=== PATIENT | female | born 1995 | race Two or more races ===

== ENCOUNTER 2016-11-16 17:25 | Emergency (ER) | payer SELFPAY ==
[2016-11-16] MEDS ORDERED: OXYCODONE-ACETAMINOPHEN 5-325 MG TABLET PO ONE (18:45)
[2016-11-16] MEDS ORDERED: ONDANSETRON 4 MG TAB.RAPDIS PO ONE (18:45)
--- NOTE | 2016-11-16 18:50 | ER Document Report ---
ED General - General Chief Complaint: Abdominal Pain Stated Complaint: CHILLS,ABDOMINAL PAIN,NAUSEA Time Seen by Provider: 11/16/16 18:44 Mode of Arrival: Ambulatory Information source: Patient TRAVEL OUTSIDE OF THE [place] IN LAST 30 DAYS: No - HPI Patient complains to provider of: lower abd pain Onset: This afternoon Onset/Duration: Sudden Quality of pain: Sharp Severity: Moderate Pain Level: 3 Context: Patient complains of sudden onset of bilateral lower abdominal pain this afternoon about 4:00. States she has had similar symptoms in the past. Seen 7 months ago at [facility] in [place]. Patient states she had ultrasound and pelvic exam which were negative. States she does not know the diagnosis, but was discharged. Patient denies fever, but reports she does have nausea. Denies diarrhea. Denies vaginal discharge. Associated symptoms: Chills, Nausea. denies: Vomiting Exacerbated by: Denies Relieved by: Denies Similar symptoms previously: Yes Recently seen / treated by doctor: No - Related Data Allergies/Adverse Reactions: No Known Allergies Allergy (Unverified 11/16/16 17:32) Past Medical History - General Information source: Patient - Social History Smoking Status: Current Every Day Smoker Cigarette use (# per day): Yes Frequency of alcohol use: None Drug Abuse: None Lives with: Family Family History: Reviewed & Not Pertinent Patient has suicidal ideation: No Patient has homicidal ideation: No - Medical History Medical History: Negative Renal/ Medical History: Denies: Hx Peritoneal Dialysis Surgical Hx: Negative - Immunizations Immunizations up to date: Yes Review of Systems - Review of Systems Constitutional: See HPI EENT: No symptoms reported Cardiovascular: No symptoms reported Respiratory: No symptoms reported Gastrointestinal: See HPI Genitourinary: No symptoms reported Female Genitourinary: No symptoms reported Musculoskeletal: No symptoms reported Skin: No symptoms reported Hematologic/Lymphatic: No symptoms reported Neurological/Psychological: No symptoms reported -: Yes All other systems reviewed and negative Physical Exam - Vital signs Vitals: Temp Pulse Resp BP Pulse Ox 98.5 F 111 H 18 106/68 100 11/16/16 17:32 11/16/16 17:32 11/16/16 17:32 11/16/16 17:32 11/16/16 17:32 - General General appearance: Appears well, Alert In distress: Mild - HEENT Head: Normocephalic Eyes: Normal - Respiratory Respiratory status: No respiratory distress Breath sounds: Normal - Cardiovascular Rhythm: Regular Heart sounds: Normal auscultation - Abdominal Inspection: Normal Bowel sounds: Normal Tenderness: Tender - All across lower abdomen, Guarding. No: McBurney's point, Rebound - Back Back: No: CVA tenderness - Extremities General upper extremity: Normal inspection General lower extremity: Normal inspection - Neurological Neuro grossly intact: Yes Cognition: Normal - Psychological Associated symptoms: Normal affect, Normal mood - Skin Skin Temperature: Warm Skin Moisture: Dry Skin Color: Normal Course - Re-evaluation Re-evalutation: 11/16/16 20:52 Labs unremarkable at this time. Patient advised pelvic exam recommended. Patient is refusing pelvic exam at this time. Patient still complaining of lower abdominal pain, denies nausea, vomiting, vaginal discharge or dysuria at this time. Advised to follow-up with her doctor, or to return if symptoms worsen. Patient verbalizes understanding. 11/16/16 20:58 - Vital Signs Vital signs: Temp Pulse Resp BP Pulse Ox 98.0 F 66 14 94/53 L 98 11/16/16 21:19 11/16/16 21:19 11/16/16 21:19 11/16/16 21:19 11/16/16 21:19 - Laboratory Result Diagrams: 11/16/16 18:59 11/16/16 18:59 Laboratory results interpreted by me: 11/16/16 11/16/16 11/16/16 18:59 18:59 19:38 Seg Neutrophils % 78.6 H Lymphocytes % 11.1 L Albumin 3.4 L Urine Urobilinogen 2.0 H Ur Leukocyte Esterase TRACE H Discharge - Discharge Clinical Impression: Lower abdominal pain Condition: Good Disposition: HOME, SELF-CARE Instructions: Abdominal Pain ([facility]) Additional Instructions: Tylenol or ibuprofen for pain. Follow-up with your doctor for recheck or return for worsening symptoms. Prescriptions: Ibuprofen 800 mg PO TID PRN #30 tablet PRN Reason:
[2016-11-16 19:12] LABS: ABSOLUTE LYMPHOCYTES (AUTO) 0.9 10^3/uL (0.5-4.7); ABSOLUTE MONOCYTES (AUTO) 0.8 10^3/uL (0.1-1.4); ABSOLUTE NEUT (AUTO) 6.6 10^3/uL (1.7-8.2); BASOPHILS % (AUTO) 0.3 % (0-2); EOSINOPHILS % (AUTO) 0.5 % (0-6); HEMATOCRIT 39.2 % (36.0-47.0); HEMOGLOBIN 13.2 g/dL (12.0-15.5); HGB HCT DIFFERENCE 0.4; LYMPHOCYTES % (AUTO) 11.1 % (13-45); MEAN CORPUSCULAR HEMOGLOBIN 30.3 pg (27.0-33.4); MEAN CORPUSCULAR HGB CONC 33.7 g/dL (32.0-36.0); MEAN CORPUSCULAR VOLUME 90 fl (80-97); MONOCYTES % (AUTO) 9.5 % (3-13); RED BLOOD COUNT 4.36 10^6/uL (3.72-5.28); RED CELL DISTRIBUTION WIDTH 12.8 % (11.5-14.0); SEGMENTED NEUTROPHILS % (AUTO) 78.6 % (42-78); WHITE BLOOD COUNT 8.4 10^3/uL (4.0-10.5)
[2016-11-16 19:29] LABS: ALANINE AMINOTRANSFERASE 32 U/L (9-52); ALBUMIN 3.4 g/dL (3.5-5.0); ALKALINE PHOSPHATASE 85 U/L (38-126); ANION GAP 11 (5-19); ASPARTATE AMINO TRANSFERASE 21 U/L (14-36); BILIRUBIN,DIRECT 0.3 mg/dL (0.0-0.4); BILIRUBIN,TOTAL 0.9 mg/dL (0.2-1.3); BLOOD UREA NITROGEN 7 mg/dL (7-20); CARBON DIOXIDE 24 mmol/L (22-30); CHLORIDE 104 mmol/L (98-107); CREATININE RESULT 0.66 mg/dL (0.52-1.25); GLUCOSE 102 mg/dL (75-110); LIPASE 33.5 U/L (23-300); POTASSIUM 4.5 mmol/L (3.6-5.0); TOTAL PROTEIN 7.3 g/dL (6.3-8.2)
[2016-11-16 19:51] LABS: APPEARANCE,URINE CLOUDY; BILIRUBIN,URINE NEGATIVE (NEGATIVE); GLUCOSE, URINE NEGATIVE (NEGATIVE); KETONES,URINE NEGATIVE (NEGATIVE); LEUKOCYTE ESTERASE,URINE TRACE (NEGATIVE); NITRITE,URINE NEGATIVE (NEGATIVE); PROTEIN,URINE NEGATIVE (NEGATIVE); URINE SPECIFIC GRAVITY 1.014
[2016-11-16] MEDS ORDERED: IBUPROFEN 800 MG TABLET PO ONE (20:50)
[2016-11-16 21:43] VITALS: BP 94/53
[2016-11-16 22:53] LABS: CHLAM PCR NOT DETECTED (NOT DETECT)
== END 2016-11-16 21:09 | disposition home or self-care (01) ==
LOC: ER 17:25
DX: R10.30 Lower abdominal pain, unspecified (principal); R11.0 Nausea; R68.83 Chills (without fever); F17.210 Nicotine dependence, cigarettes, uncomplicated
CPT/HCPCS: 99284; 36415; 84702; 83690; 85025; 80053; 81001; 87491; 87591; S0119

== ENCOUNTER 2016-12-14 21:19 | Emergency (ER) | payer SELFPAY | END 2016-12-14 22:31 | disposition left against medical advice (07) | LOC: ER 21:19 | DX: Z53.9 Procedure and treatment not carried out, unspecified reason (principal); M79.89 Other specified soft tissue disorders ==

== ENCOUNTER 2016-12-15 16:54 | Emergency (ER) | payer SELFPAY ==
[2016-12-15] MEDS ORDERED: OXYCODONE-ACETAMINOPHEN 5-325 MG TABLET PO ONE (17:50)
[2016-12-15] MEDS ORDERED: IBUPROFEN 600 MG TABLET PO ONE (17:50)
--- NOTE | 2016-12-15 17:52 | ER Document Report ---
ED Medical Screen (RME) - General Chief Complaint: Abscess Stated Complaint: RIGHT WRIST POSSIBLE ABSCESS Time Seen by Provider: 12/15/16 17:49 Notes: The patient is a 21-year-old female presents with 1 day of swelling over her posterior right forearm. She noticed a small pimple that expanded today. Denies numbness, tingling, fevers or difficulty moving her wrist or hand. PE: 3 cm abscess with surrounding erythema over right posterior forearm, strong pulses, N/V intact distally I have greeted and performed a rapid initial assessment of this patient. A comprehensive ED assessment and evaluation of the patient, analysis of test results and completion of the medical decision making process will be conducted by additional ED providers. TRAVEL OUTSIDE OF THE [place] IN LAST 30 DAYS: No - Related Data Allergies/Adverse Reactions: No Known Allergies Allergy (Verified 12/15/16 17:09) Past Medical History - Social History Chew tobacco use (# tins/day): No Frequency of alcohol use: None Drug Abuse: None Renal/ Medical History: Denies: Hx Peritoneal Dialysis Surgical Hx: Negative - Immunizations Immunizations up to date: Yes Hx Diphtheria, Pertussis, Tetanus Vaccination: No Physical Exam - Vital signs Vitals: Temp Pulse Resp BP Pulse Ox 97.5 F 98 14 108/63 96 12/15/16 17:11 12/15/16 17:11 12/15/16 17:11 12/15/16 17:11 12/15/16 17:11 Course - Vital Signs Vital signs: Temp Pulse Resp BP Pulse Ox 97.5 F 98 14 108/63 96 12/15/16 17:11 12/15/16 17:11 12/15/16 17:11 12/15/16 17:11 12/15/16 17:11
[2016-12-15] MEDS ORDERED: CEFTRIAXONE INJ 1000 MG VIAL IM ONE (18:23)
[2016-12-15] MEDS ORDERED: LIDOCAINE 4%/TETRACAINE 0.5%/EPI 0.18% 5 ML TOPICAL SOLN TOP ONE (18:23)
--- NOTE | 2016-12-15 18:32 | ER Document Report ---
ED General - General Chief Complaint: Abscess Stated Complaint: RIGHT WRIST POSSIBLE ABSCESS Time Seen by Provider: 12/15/16 17:49 Notes: Patient is a 21-year-old female comes the ED complaining of an abscess to her posterior right wrist 2 days. Patient states that it started out as a small pimple and then it began to expand. Pt not aware of any insect bite. She Did apply Neosporin without any relief. The soreness is starting to move proximally on her forearm without any red streaks. Patient states that she has had pustular drainage. She still eating and drinking without any problems. Pt states she is still able to move her wrist, fingers, elbows without any problems besides discomfort. Denies any new tattoos in the area. Denies any IV drug use. Denies any fever, URI, chest pain, shortness of breath, abdominal pain, nausea/vomiting, numbness/tingling. TRAVEL OUTSIDE OF THE [place] IN LAST 30 DAYS: No - Related Data Allergies/Adverse Reactions: No Known Allergies Allergy (Verified 12/15/16 17:09) Past Medical History - Social History Smoking Status: Current Every Day Smoker Chew tobacco use (# tins/day): No Frequency of alcohol use: None Drug Abuse: None Family History: Reviewed & Not Pertinent Patient has suicidal ideation: No Patient has homicidal ideation: No Renal/ Medical History: Denies: Hx Peritoneal Dialysis Surgical Hx: Negative - Immunizations Immunizations up to date: Yes Hx Diphtheria, Pertussis, Tetanus Vaccination: No Review of Systems - Review of Systems Notes: REVIEW OF SYSTEMS: CONSTITUTIONAL : Denies fever, chills, or sweats. Denies recent illness. EENT: Denies eye, ear, throat, or mouth pain or symptoms. Denies nasal or sinus congestion or discharge. Denies throat, tongue, or mouth swelling or difficulty swallowing. CARDIOVASCULAR: Denies chest pain. Denies palpitations or racing or irregular heart beat. Denies ankle edema. RESPIRATORY: Denies cough, cold, or chest congestion. Denies shortness of breath, difficulty breathing, or wheezing. GASTROINTESTINAL: Denies abdominal pain or distention. Denies nausea, vomiting , or diarrhea. Denies blood in vomitus, stools, or per rectum. Denies black, tarry stools. Denies constipation. GENITOURINARY: Denies difficulty urinating, painful urination, burning, frequency, blood in urine, or discharge. MUSCULOSKELETAL: see hpi SKIN: see hpi HEMATOLOGIC : Denies easy bruising or bleeding. LYMPHATIC: Denies swollen, enlarged glands. NEUROLOGICAL: Denies confusion or altered mental status. Denies passing out or loss of consciousness. Denies dizziness or lightheadedness. Denies headache. Denies weakness or paralysis or loss of use of either side. Denies problems with gait or speech. Denies sensory loss, numbness, or tingling. ALL OTHER SYSTEMS REVIEWED AND NEGATIVE. Dictation was performed using [employer] voice recognition software Physical Exam - Vital signs Vitals: Temp Pulse Resp BP Pulse Ox 97.5 F 98 14 108/63 96 12/15/16 17:11 12/15/16 17:11 12/15/16 17:11 12/15/16 17:11 12/15/16 17:11 Notes: PHYSICAL EXAMINATION: GENERAL: Well-appearing, well-nourished and in no acute distress. NECK: Normal range of motion, supple without lymphadenopathy. No axillary or proximal arm lymphadenopathy. LUNGS: Breath sounds clear to auscultation bilaterally and equal. No wheezes rales or rhonchi. HEART: Regular rate and rhythm without murmurs, rubs, gallops. ABDOMEN: Soft, nontender, nondistended abdomen. Musculoskeletal: FROM to passive/active. Strength 5+/5. + tenderness of the rt wrist secondary to abscess superficially. Extremities: No cyanosis, clubbing, or edema b/l. Peripheral pulses 2+. Capillary refill less than 3 seconds. NEUROLOGICAL:Normal speech, normal gait. Normal sensory, motor exams to Rt UE and distal to wrist. PSYCH: Normal mood, normal affect. SKIN: + 3cm abscess noted to posterior rt wrist. No d/c currently. + tenderness. Course - Re-evaluation Re-evalutation: Patient is an afebrile, well-hydrated, 21yo female who presents with an abscess to her rt posterior wrist. XR negative. Oxycodone given for pain control by Dr. Novak. I&D performed successfully without complication. Wound culture pending. Pt states she does not have insurance so she will not fill any medication that is too expensive. We will then try Bactrim DS PO BID x10 days which will give us MRSA coverage as well due to the quick growth of the abscess. wound instructions reviewed. Pt does not have a PCM. She is to return in 2-3 days for a wound check. Return to the ED sooner with development of fever, red streaks, worsening pain, hand numbness/tingling, cp, sob. Pt in agreement. 12/15/16 19:38 - Vital Signs Vital signs: Temp Pulse Resp BP Pulse Ox 97.5 F 98 14 108/63 96 12/15/16 17:11 12/15/16 17:11 12/15/16 17:11 12/15/16 17:11 12/15/16 17:11 Procedures - Incision and Drainage Right Posterior Wrist Time completed: 19:00 Type: Simple Anesthetic type: 1% Lidocaine mL's of anesthetic: 5 Blade size: 11 I&D procedure: Shurclens applied, Iodoform packing placed, Sterile dressing applied Incision Method: Incision made by scalpel Amount/type of drainage: Copious, pustular/bloody Notes: Incision and drainage procedure, risks, benefits reviewed with the patient. Verbal and written consent obtained. Sterile technique utilized. The area was extensively cleansed utilizing shurclens and saline. A 21-gauge needle was utilized to anesthetize the area using 5 mL's of 1% lidocaine without epinephrine along with L.E.T. Once adequate anesthesia was provided, a #11 scalpel was utilized to make a 1 cm incision at the site of the abscess. Copious amounts of pustular material was expressed. Wound culture obtained. Hemostats were then utilized to break up any remaining muscular pockets within the abscess. The wound was then lightly packed (wick) using 1/2" iodoform. Wound dressing and triple antibiotic placed. Minimal blood loss (approximately 2-3 cc's). Patient tolerated procedure well. No complications. 12/15/16 19:35 Discharge - Discharge Clinical Impression: Abscess Cellulitis Qualifiers: Site of cellulitis: extremity Site of cellulitis of extremity: upper extremity Laterality: right Qualified Code(s): L03.113 - Cellulitis of right upper limb Condition: Stable Disposition: HOME, SELF-CARE Instructions: Abscess ([facility]), Trimethoprim-Sulfa ([facility]), Post Incision and Drainage Additional Instructions: Do not shower or bathe for 24 hours. After 24 hours she may shower but no submersion of the wound under water. Keep the original dressing on the wound for 24 hours unless the drainage stops through. Change the dressing daily thereafter and use a small amount of triple antibiotic ointment over the open wound. Return to the ED 2-3 days for recheck and continue direction for wound packing. Return to the ED sooner with development of fever, red streaks, worsening pain, hand numbness/tingling, chest pains, shortness of breath. Take medications as directed. Prescriptions: Sulfamethoxazole/Trimethoprim [Bactrim Ds Tablet] 1 each PO BID #20 tablet Forms: Smoking Cessation Education
[2016-12-15] MEDS ORDERED: LIDOCAINE 1% INJ-PF (10 MG/ML) 30 ML SDV INJ ONE (18:37)
--- NOTE | 2016-12-15 19:18 | RADIOLOGY REPORT (SQ) ---
EXAM DESCRIPTION: WRIST RIGHT 3 VIEWS COMPLETED DATE/TIME: 12/15/2016 6:56 pm REASON FOR STUDY: Abscess Rt wrist, r/o osteomyelitis COMPARISON: None. NUMBER OF VIEWS: Three views. TECHNIQUE: AP, lateral, and oblique radiographic images acquired of the right wrist. LIMITATIONS: None. FINDINGS: MINERALIZATION: Normal. BONES: No acute fracture or dislocation. No worrisome bone lesions. Normal alignment. SOFT TISSUES: Lateral soft tissue swelling at the level of the distal ulnar metaphysis. No radiopaqu e foreign body. OTHER: No other significant finding. IMPRESSION: No osseous abnormality. Lateral soft tissue swelling at the level of the distal ulnar m etaphysis. No radiopaque foreign body. TECHNICAL DOCUMENTATION: JOB ID: [id number] [employer]- All Rights Reserved
[2016-12-15] MEDS ORDERED: OXYCODONE HCL IR 5 MG TABLET PO ONE (19:33)
[2016-12-15 20:15] VITALS: BP 121/76
== END 2016-12-15 20:15 | disposition home or self-care (01) ==
LOC: ER 16:54
PROC: 0H9DXZZ Drainage of Right Lower Arm Skin, External Approach (ICD-10-PCS; principal; 2016-12-15)
DX: L02.413 Cutaneous abscess of right upper limb (principal); L03.113 Cellulitis of right upper limb; F17.200 Nicotine dependence, unspecified, uncomplicated
CPT/HCPCS: 99284; 87070; 87205; 87075; 87077; 73110; 10060; J0696; J3490

== ENCOUNTER 2016-12-18 14:44 | Observation (INO) | payer SELFPAY ==
--- NOTE | 2016-12-18 16:32 | RADIOLOGY REPORT (SQ) ---
EXAM DESCRIPTION: WRIST RIGHT 3 VIEWS COMPLETED DATE/TIME: 12/18/2016 4:06 pm REASON FOR STUDY: increased pain and swelling COMPARISON: 12/15/2016 NUMBER OF VIEWS: Three views. TECHNIQUE: AP, lateral, and oblique radiographic images acquired of the right wrist. LIMITATIONS: None. FINDINGS: MINERALIZATION: Normal. BONES: No acute fracture or dislocation. No worrisome bone lesions. Normal alignment. SOFT TISSUES: Decreased, albeit persistent soft tissue swelling overlies the distal ulnar arm metaphy sis. Superficial soft tissue irregularity is demonstrated. No retained radiopaque foreign body. OTHER: No other significant finding. IMPRESSION: Decreased, albeit persistent, soft tissue swelling overlying the distal ulnar metaphysis . No interval osseous abnormality. TECHNICAL DOCUMENTATION: JOB ID: [id number] [employer]- All Rights Reserved
--- NOTE | 2016-12-18 17:06 | ER Document Report ---
Doctor's Note Notes: Patient was continued in conjunction with the LI. Patient states that wound was drained and that that appears better but now she is having streaking into her wrist and pain with movement of her wrist. Patient infection is concerning for abscess or tendon involvement. Patient's antibiotic regimen and home not working. She will need to be admitted and evaluated by orthopedics for further evaluation. Wound is also concerning for IV drug use which patient denies at this time.
[2016-12-18 17:50] LABS: ABSOLUTE LYMPHOCYTES (AUTO) 1.4 10^3/uL (0.5-4.7); ABSOLUTE MONOCYTES (AUTO) 0.4 10^3/uL (0.1-1.4); ABSOLUTE NEUT (AUTO) 3.1 10^3/uL (1.7-8.2); BASOPHILS % (AUTO) 0.3 % (0-2); EOSINOPHILS % (AUTO) 0.3 % (0-6); HEMATOCRIT 37.8 % (36.0-47.0); HEMOGLOBIN 12.5 g/dL (12.0-15.5); HGB HCT DIFFERENCE -0.3; LYMPHOCYTES % (AUTO) 28.9 % (13-45); MEAN CORPUSCULAR HEMOGLOBIN 29.5 pg (27.0-33.4); MEAN CORPUSCULAR HGB CONC 33.1 g/dL (32.0-36.0); MEAN CORPUSCULAR VOLUME 89 fl (80-97); MONOCYTES % (AUTO) 8.6 % (3-13); RED BLOOD COUNT 4.24 10^6/uL (3.72-5.28); RED CELL DISTRIBUTION WIDTH 13.6 % (11.5-14.0); SEGMENTED NEUTROPHILS % (AUTO) 61.9 % (42-78); WHITE BLOOD COUNT 4.9 10^3/uL (4.0-10.5)
[2016-12-18 18:07] LABS: ALANINE AMINOTRANSFERASE 35 U/L (9-52); ALBUMIN 3.2 g/dL (3.5-5.0); ALKALINE PHOSPHATASE 124 U/L (38-126); ANION GAP 11 (5-19); ASPARTATE AMINO TRANSFERASE 40 U/L (14-36); BILIRUBIN,DIRECT 0.4 mg/dL (0.0-0.4); BILIRUBIN,TOTAL 0.4 mg/dL (0.2-1.3); BLOOD UREA NITROGEN 7 mg/dL (7-20); C-REACTIVE PROTEIN 35.2 mg/L (<10.0); CALCIUM 8.7 mg/dL (8.4-10.2); CARBON DIOXIDE 23 mmol/L (22-30); CHLORIDE 101 mmol/L (98-107); CREATININE RESULT 0.89 mg/dL (0.52-1.25); GLUCOSE 92 mg/dL (75-110); POTASSIUM 4.6 mmol/L (3.6-5.0); SODIUM 135.3 mmol/L (137-145); TOTAL PROTEIN 7.6 g/dL (6.3-8.2)
[2016-12-18] MEDS ORDERED: CIPROFLOXACIN 400 MG/D5W RTU 200 ML IV ONE (18:20)
[2016-12-18] MEDS ORDERED: VANCOMYCIN HCL INJ 1000 MG VIAL IV ONE (18:20)
--- NOTE | 2016-12-18 18:27 | ER Document Report ---
ED Extremity Problem, Upper - General Chief Complaint: Wound Recheck Stated Complaint: WOUND RECHECK Time Seen by Provider: 12/18/16 15:20 Mode of Arrival: Ambulatory Information source: Patient Notes: 1-year-old female presents to ED for recheck of a abscess to her right wrist. She states she was seen on 12/15/2016 and had an I&D of the abscess but that the arm is getting more painful and more swollen since the I&D. She states she is on Bactrim and has been taking her medications as prescribed. TRAVEL OUTSIDE OF THE [place] IN LAST 30 DAYS: No - HPI Patient complains to provider of: Right, Wrist Onset: Other - 12/13/2016 Recent injury: No Quality of pain: Pressure, Sharp, Throbbing Severity of pain: Moderate, Persistent Pain Level: 3 Context: Other - Abscess Associated symptoms: Other - In swelling redness feels warm to the touch Exacerbated by: Movement Relieved by: Rest Similar symptoms previously: Yes Recently seen / treated by doctor: Yes - Related Data Allergies/Adverse Reactions: No Known Allergies Allergy (Verified 12/18/16 14:46) Past Medical History - General Information source: Patient - Social History Smoking Status: Current Every Day Smoker Cigarette use (# per day): Yes - Half a pack a day Chew tobacco use (# tins/day): No Smoking Education Provided: Yes - Less than 2 minutes Frequency of alcohol use: None Drug Abuse: None, Other Family History: Reviewed & Not Pertinent Patient has suicidal ideation: No Patient has homicidal ideation: No - Past Medical History Cardiac Medical History: Reports: None Pulmonary Medical History: Reports: None EENT Medical History: Reports: None Renal/ Medical History: Denies: Hx Peritoneal Dialysis - Immunizations Immunizations up to date: Yes Hx Diphtheria, Pertussis, Tetanus Vaccination: No Review of Systems - Review of Systems Constitutional: No symptoms reported EENT: No symptoms reported Cardiovascular: No symptoms reported Respiratory: No symptoms reported Gastrointestinal: No symptoms reported Genitourinary: No symptoms reported Female Genitourinary: No symptoms reported Musculoskeletal: Other - Swollen and inflamed posterior right wrist. Abscess that was I&D on the seventh is opening and draining purulent drainage there is also a tender fluctuant area right on the wrist distal to where the previous abscess was I&D Skin: Other - Open wound where previous abscess was I&D purulent drainage Hematologic/Lymphatic: No symptoms reported Neurological/Psychological: No symptoms reported Physical Exam - Vital signs Vitals: Temp Pulse Resp BP Pulse Ox 98.2 F 107 H 12 115/61 96 12/18/16 14:47 12/18/16 14:47 12/18/16 14:47 12/18/16 14:47 12/18/16 14:47 Interpretation: Normal - General General appearance: Appears well, Alert - HEENT Head: Normocephalic, Atraumatic Eyes: Normal Pupils: PERRL - Respiratory Respiratory status: No respiratory distress Chest status: Nontender Breath sounds: Normal Chest palpation: Normal - Cardiovascular Rhythm: Regular Heart sounds: Normal auscultation Murmur: No - Abdominal Inspection: Normal Distension: No distension Bowel sounds: Normal Tenderness: Nontender Organomegaly: No organomegaly - Back Back: Normal, Nontender - Extremities General lower extremity: Normal inspection, Nontender, Normal color, Normal ROM , Normal temperature, Normal weight bearing. No: Annemarie's sign Wrist: Tender, Limited ROM, Other - Open draining with purulent drainage I&D site just proximal to the right wrist. Fluctuant tender warm red area at the wrist.. No: Abrasion, Axial load of thumb pain, Deformity, Dislocation, Ecchymosis, Instability, Laceration Hand: No evidence of human bite, No evidence of FB, Swelling - Neurological Neuro grossly intact: Yes Cognition: Normal Orientation: AAOx4 Stefan Coma Scale Eye Opening: Spontaneous Stefan Coma Scale Verbal: Oriented Stefan Coma Scale Motor: Obeys Commands Stefan Coma Scale Total: 15 Speech: Normal Motor strength normal: LUE, RUE, LLE, RLE Sensory: Normal - Psychological Associated symptoms: Normal affect, Normal mood - Skin Skin Temperature: Warm Skin Moisture: Dry Skin Color: Normal Skin irregularity: Abscess Location of irregularity: Extremities - Right wrist and just proximal to the wrist posterior surface Irregularity with: Swelling, Tenderness, Warmth, Weeping - Purulent drainage from abscess site Course - Re-evaluation Re-evalutation: 12/18/16 20:[address] Rooney at 1720 and examined the patient and requested that Dr. Gracia be called for possible admission. Dr. Gracia consulted he requested CBC, chemistry, blood cultures, sed rate, CRP, urine, urine drug screen, and test to be completed and he would come and examine the patient. X- ray was also completed on the wrist. 12/18/16 Dr. Gracia came and examined the patient at 1836 he said that the patient will be admitted to start antibiotics let the patient have a diet tonight. - Vital Signs Vital signs: Temp Pulse Resp BP Pulse Ox 98.4 F 72 18 106/61 99 12/18/16 19:50 12/18/16 19:50 12/18/16 19:50 12/18/16 19:50 12/18/16 19:50 - Laboratory Result Diagrams: 12/18/16 17:30 12/18/16 17:30 Laboratory results interpreted by me: 12/18/16 12/18/16 17:30 17:30 ESR 88 H Sodium 135.3 L AST 40 H C-Reactive Protein 35.2 H Albumin 3.2 L Discharge - Discharge Clinical Impression: Abscess Cellulitis Qualifiers: Site of cellulitis: extremity Site of cellulitis of extremity: upper extremity Laterality: right Qualified Code(s): L03.113 - Cellulitis of right upper limb Disposition: ADMITTED INPATIENT Admitting Provider: yvon Unit Admitted: Surgical Floor
[2016-12-18] MEDS ORDERED: ONDANSETRON HCL INJ/PF 4 MG/2 ML SDV IV PRN (18:31)
--- NOTE | 2016-12-18 18:38 | PDOC H&P ---
History of Present Illness Patient complains of: Wound check right wrist History of Present Illness: RIK WORRELL is a 21 year old female Presents emergency room for wound check of her right wrist. She states it developed redness and swelling a few days ago. She was seen at the emergency room on 12/15/16 and a bedside I&D was performed. She has been taking Septra twice a day. She feels as though the wound has improved since that time. She denies fever chills or sweats. Current pain 07/20. Denies illicit drug use, insect bite, trauma, HIV and hepatitis C. Social History Information Source: Patient Smoking Status: Current Every Day Smoker Hx Recreational Drug Use: No Family History Family History: Reviewed & Not Pertinent Parental Family History Reviewed: No Children Family History Reviewed: No Sibling(s) Family History Reviewed.: No Medication/Allergy Home Medications: Ibuprofen 800 mg PO TID PRN #30 tablet 11/16/16 Sulfamethoxazole/Trimethoprim [Bactrim Ds Tablet] 1 each PO BID #20 tablet 12/15 Tramadol HCl 50 mg PO BID PRN #6 tablet 12/15/16 Allergies/Adverse Reactions: No Known Allergies Allergy (Verified 12/18/16 14:46) Review of Systems Constitutional: ABSENT: chills, fever(s), headache(s), weight gain, weight loss Eyes: ABSENT: visual disturbances Ears: ABSENT: hearing changes Cardiovascular: ABSENT: chest pain, dyspnea on exertion, edema, orthropnea, palpitations Respiratory: ABSENT: cough, hemoptysis Gastrointestinal: ABSENT: abdominal pain, constipation, diarrhea, hematemesis, hematochezia, nausea, vomiting Genitourinary: ABSENT: dysuria, hematuria Musculoskeletal: PRESENT: as per HPI Integumentary: PRESENT: as per HPI, wounds. ABSENT: rash Neurological: ABSENT: abnormal gait, abnormal speech, confusion, dizziness, focal weakness, syncope Psychiatric: ABSENT: anxiety, depression, homidical ideation, suicidal ideation Endocrine: ABSENT: cold intolerance, heat intolerance, menstrual abnormalities, polydipsia, polyuria Hematologic/Lymphatic: ABSENT: easy bleeding, easy bruising, lymphadenopathy Physical Exam Vital Signs: Temp Pulse Resp BP Pulse Ox 98.2 F 107 H 12 115/61 96 12/18/16 14:47 12/18/16 14:47 12/18/16 14:47 12/18/16 14:47 12/18/16 14:47 Intake & Output 12/17/16 12/18/16 12/19/16 06:59 06:59 06:59 Weight 52 kg General appearance: PRESENT: no acute distress, well-developed, well-nourished Head exam: PRESENT: atraumatic, normocephalic Eye exam: PRESENT: conjunctiva pink, EOMI, PERRLA. ABSENT: scleral icterus Ear exam: PRESENT: normal external ear exam Mouth exam: PRESENT: moist, tongue midline Neck exam: PRESENT: full ROM. ABSENT: carotid bruit, JVD, lymphadenopathy, thyromegaly Cardiovascular exam: PRESENT: RRR. ABSENT: diastolic murmur, rubs, systolic murmur Pulses: PRESENT: normal dorsalis pedis pul, +2 pedal pulses bilateral Vascular exam: PRESENT: normal capillary refill GI/Abdominal exam: PRESENT: normal bowel sounds, soft. ABSENT: distended, guarding, mass, organolmegaly, rebound, tenderness Rectal exam: PRESENT: deferred Musculoskeletal exam: PRESENT: other - Right wrist/hand: 3 cm x 3 cm ulcerated wound along the dorsum of the wrist ulnarly. There is a minimal amount of purulent drainage expressed. Small area of redness along the dorsum more proximally no tracking erythema. Patient has no pain with wrist range of motion. No sensory deficit. Patient able make full composite fist. No lymphadenopathy. Appreciable effusion. Neurological exam: PRESENT: alert, awake, oriented to person, oriented to place , oriented to time, oriented to situation, CN II-XII grossly intact. ABSENT: motor sensory deficit Psychiatric exam: PRESENT: appropriate affect, normal mood. ABSENT: homicidal ideation, suicidal ideation Skin exam: PRESENT: dry, intact, warm. ABSENT: cyanosis, rash Results Laboratory Results: 12/18/16 17:30 12/18/16 17:30 12/18/16 12/18/16 12/18/16 17:30 17:30 17:30 WBC 4.9 RBC 4.24 Hgb 12.5 Hct 37.8 MCV 89 MCH 29.5 MCHC 33.1 RDW 13.6 Plt Count 169 Seg Neutrophils % 61.9 Lymphocytes % 28.9 Monocytes % 8.6 Eosinophils % 0.3 Basophils % 0.3 Absolute Neutrophils 3.1 Absolute Lymphocytes 1.4 Absolute Monocytes 0.4 Absolute Eosinophils 0.0 Absolute Basophils 0.0 Sodium 135.3 L Potassium 4.6 Chloride 101 Carbon Dioxide 23 Anion Gap 11 BUN 7 Creatinine 0.89 Est GFR ( Amer) > 60 Est GFR (Non-Af Amer) > 60 Glucose 92 Calcium 8.7 Total Bilirubin 0.4 AST 40 H ALT 35 Alkaline Phosphatase 124 C-Reactive Protein 35.2 H Total Protein 7.6 Albumin 3.2 L Serum HCG, Qual NEGATIVE Impressions: Wrist X-Ray 12/18/16 15:44 IMPRESSION: Decreased, albeit persistent, soft tissue swelling overlying the distal ulnar metaphysis. No interval osseous abnormality. Status: Image reviewed by me - The patient's radiographs which demonstrates persistent dorsal swelling however improved compared to prior examination at the level of the wound there is no underlying bone changes or gas appreciated. Assessment & Plan - Diagnosis (1) Abscess or cellulitis of wrist Is this a current diagnosis for this admission?: YesPlan: Patient's laboratory values are relatively within normal limits CRP is slightly elevated at 35. According to the patient the redness swelling and pain has significantly improved since the local I&D and antibiotics. However the open ulceration is somewhat concerning along with the minimal amount of purulent drainage. At this point I do not feel there is an underlying drainable abscess thus I have recommended a course of IV antibiotics and observation. I did specifically discuss with the patient the possibility of infection causes including insect bite or illicit drug use patient adamantly denies either. We will start the patient on Cipro for Pseudomonas coverage along with vancomycin which should cover patient's culture results from previous wound. We will keep the patient n.p.o. after midnight and placed on the OR schedule prophylactically and re-observe in the morning.
[2016-12-18] MEDS ORDERED: VANCOMYCIN HCL INJ 1000 MG VIAL IV SCH (18:45)
[2016-12-18 20:13] LABS: APPEARANCE,URINE CLEAR; BILIRUBIN,URINE NEGATIVE (NEGATIVE); GLUCOSE, URINE NEGATIVE (NEGATIVE); KETONES,URINE NEGATIVE (NEGATIVE); LEUKOCYTE ESTERASE,URINE TRACE (NEGATIVE); NITRITE,URINE NEGATIVE (NEGATIVE); PROTEIN,URINE NEGATIVE (NEGATIVE); URINE SPECIFIC GRAVITY 1.005; UROBILINOGEN,URINE NEGATIVE mg/dL (<2.0)
[2016-12-18 20:28] LABS: URINE BARBITURATES SCREEN NEGATIVE; URINE METHADONE SCREEN NEGATIVE; URINE OPIATES LOW UNCONFIRMED POSITIVE; URINE PHENCYCLIDINE SCREEN NEGATIVE
[2016-12-18] MEDS ORDERED: CIPROFLOXACIN 400 MG/D5W RTU 200 ML IV SCH (22:00)
[2016-12-18] MEDS: OXYCODONE-ACETAMINOPHEN 5-325 MG TABLET PO PRN (23:17)
[2016-12-19] MEDS ORDERED: RINGERS SOLUTION,LACTATED 1,000 ML IV PRN (00:01)
[2016-12-19] MEDS ORDERED: CIPROFLOXACIN 400 MG/D5W RTU 400 MG/200 ML RTUPB IV SCH (06:00)
[2016-12-19 06:28] LABS: ABSOLUTE EOSINOPHILS # (AUTO) 0.1 10^3/uL (0.0-0.6); ABSOLUTE LYMPHOCYTES (AUTO) 1.7 10^3/uL (0.5-4.7); ABSOLUTE MONOCYTES (AUTO) 0.6 10^3/uL (0.1-1.4); ABSOLUTE NEUT (AUTO) 1.3 10^3/uL (1.7-8.2); BASOPHILS % (AUTO) 0.5 % (0-2); EOSINOPHILS % (AUTO) 3.1 % (0-6); HEMATOCRIT 33.3 % (36.0-47.0); HGB HCT DIFFERENCE -0.3; LYMPHOCYTES % (AUTO) 45.6 % (13-45); MEAN CORPUSCULAR HEMOGLOBIN 29.6 pg (27.0-33.4); MEAN CORPUSCULAR HGB CONC 32.9 g/dL (32.0-36.0); MEAN CORPUSCULAR VOLUME 90 fl (80-97); MONOCYTES % (AUTO) 15.1 % (3-13); RED CELL DISTRIBUTION WIDTH 13.5 % (11.5-14.0); SEGMENTED NEUTROPHILS % (AUTO) 35.7 % (42-78); WHITE BLOOD COUNT 3.8 10^3/uL (4.0-10.5)
--- NOTE | 2016-12-19 08:08 | PDOC PROGRESS REPORT ---
Subjective Progress Note for:: 12/19/16 Subjective:: Patient seen and evaluated on rounds this morning. Denies pain or discomfort. Denies issues overnight. Denies fever chills or sweats. Physical Exam Vital Signs: Temp Pulse Resp BP Pulse Ox 98.0 F 66 15 94/48 L 99 12/19/16 07:51 12/19/16 07:51 12/19/16 07:51 12/19/16 07:51 12/19/16 07:51 Intake & Output 12/18/16 12/19/16 12/20/16 06:59 06:59 06:59 Intake Total 0 Balance 0 Musculoskeletal exam: PRESENT: other - Right wrist: Increased granulation of the open wound however there is notable purulent drainage expressed from the wound communicating distally at the dorsal wrist. There is no evidence of wrist effusion. No pain with wrist range of motion. No tracking erythema. Results Laboratory Results: 12/19/16 06:11 12/18/16 12/19/16 18:36 06:11 WBC 3.8 L RBC 3.70 L Hgb 11.0 L Hct 33.3 L MCV 90 MCH 29.6 MCHC 32.9 RDW 13.5 Plt Count 162 Seg Neutrophils % 35.7 L Lymphocytes % 45.6 H Monocytes % 15.1 H Eosinophils % 3.1 Basophils % 0.5 Absolute Neutrophils 1.3 L Absolute Lymphocytes 1.7 Absolute Monocytes 0.6 Absolute Eosinophils 0.1 Absolute Basophils 0.0 Urine Color YELLOW Urine Appearance CLEAR Urine pH 6.0 Ur Specific [place] 1.005 Urine Protein NEGATIVE Urine Glucose (UA) NEGATIVE Urine Ketones NEGATIVE Urine Blood NEGATIVE Urine Nitrite NEGATIVE Ur Leukocyte Esterase TRACE H Urine WBC (Auto) 18 Urine RBC (Auto) 1 Impressions: Wrist X-Ray 12/18/16 15:44 IMPRESSION: Decreased, albeit persistent, soft tissue swelling overlying the distal ulnar metaphysis. No interval osseous abnormality. Assessment & Plan - Diagnosis (1) Abscess or cellulitis of wrist Is this a current diagnosis for this admission?: YesPlan: Amount of purulent drainage expressed from the wound this morning I have recommended formal irrigation and excisional debridement in the operating room suite. We will obtain new cultures at that time. I have discussed risks and benefits of the surgical procedure including recurrent infection, postoperative pain, postoperative stiffness, neurovascular injury and any on proceeding complication after discussing these risks patient has verbalized understanding consented for operative treatment.
[2016-12-19] MEDS ORDERED: FENTANYL CITRATE INJ/PF 100 MCG/2 ML AMPUL ONE ×2 (11:26→11:27)
[2016-12-19] MEDS ORDERED: MIDAZOLAM 2 MG/2 ML INJ ONE (11:27)
[2016-12-19] MEDS ORDERED: DEXAMETHASONE SOD PHOSPHATE INJ 4 MG/1 ML VIAL ONE (11:27)
[2016-12-19] MEDS ORDERED: ONDANSETRON HCL INJ/PF 4 MG/2 ML SDV ONE (11:27)
[2016-12-19] MEDS ORDERED: MORPHINE SULFATE 10 MG/ML INJ ONE (11:28)
[2016-12-19] MEDS ORDERED: PROPOFOL INJ 200 MG/20 ML VIAL IV ONE (11:28)
[2016-12-19] MEDS ORDERED: LIDOCAINE 1% INJ-PF (10 MG/ML) 30 ML SDV ONE (11:50)
[2016-12-19] MEDS ORDERED: OXYCODONE-ACETAMINOPHEN 5-325 MG TABLET PO PRN ×2 (12:03)
[2016-12-19] MEDS ORDERED: MORPHINE SULFATE 10 MG/ML INJ IV PRN (12:03)
[2016-12-19] MEDS ORDERED: MEPERIDINE HCL/PF INJ 25 MG/1 ML DISP.SYRIN IV PRN (12:03)
[2016-12-19] MEDS ORDERED: DIPHENHYDRAMINE HCL 50 MG/ML VIAL IV PRN (12:03)
[2016-12-19] MEDS ORDERED: PROMETHAZINE HCL INJ 25 MG/1 ML VIAL IV PRN ×2 (12:03)
[2016-12-19] MEDS ORDERED: FENTANYL CITRATE INJ/PF 100 MCG/2 ML AMPUL IV PRN ×3 (12:03)
--- NOTE | 2016-12-19 12:27 | Operative Report ---
Operative Report PREOPERATIVE DIAGNOSIS: Abscess right wrist POSTOPERATIVE DIAGNOSIS: Superficial abscess right wrist OPERATION: Excisional irrigation and debridement superficial abscess right wrist subfascial SURGEON: ERIK GARZON ANESTHESIA: LMAC COMPLICATIONS: None ESTIMATED BLOOD LOSS: Minimal PROCEDURE: Indication for above procedure: 21-year-old female presented to the emergency room yesterday with redness swelling of her wrist. She underwent bedside I&D approximately 3 days prior she states she has been doing well but there was residual redness along the dorsum of the wrist at that point decision was made to proceed with observation IV antibiotics. On rounds this morning patient continued to have redness swelling and purulent drainage at that point a decision was made to proceed with operative intervention risks and benefits were explained the patient verbalized understanding consented for the procedure. Procedure In Detail: Patient was seen and evaluated in the preoperative holding area. The RIGHT upper extremity was initialized and marked. Patient was taken back to the operative room where transferred to the operative table and placed under MAC anesthesia. Once they were adequately anesthetized a nonsterile tourniquet was placed on the upper extremity. A surgical team debriefing was performed ensuring all instrumentation was available, the surgical procedure was discussed with possible concerns reviewed. The upper extremity was prepped with Betadine and draped in a sterile fashion. A timeout was done identifying correct patient, procedure and extremity everyone in attendance agree with this and verbalized no concerns. Esmarch was placed on the mid forearm to act as a tourniquet at the arm was not exsanguinated. Skin incision was made 3 cm in length distal to the patient's open wound. Blunt dissection was performed was necrotic appearing tissue along the subcutaneous border no deep fascial extension was appreciated. Cultures were obtained of this region. Any nonviable tissue was excised. The dorsal ulnar sensory branch was identified and retracted. Wound was irrigated with normal saline and the tourniquet was removed. A peripheral vasculature was coagulated bipolar cautery. A longitudinal skin incision was closed with interrupted 4-0 nylon suture. A Essie drain was placed in the wound. Wound was dressed with Xeroform 4 x 4's and a soft dressing. Sponge counts, instrument counts, needle counts counts were correct. Patient was then awoken from anesthesia. Transferred from the operating room table to the operating room stretcher. There was no intraoperative complications patient tolerated procedure well stable to PACU. Postoperative plan: Patient will continue IV antibiotics for 24 hours until there is evidence of clinical improvement
[2016-12-19] MEDS: CIPROFLOXACIN 400 MG/D5W RTU 400 MG/200 ML RTUPB IV SCH (17:07)
[2016-12-19] MEDS: OXYCODONE-ACETAMINOPHEN 5-325 MG TABLET PO PRN (19:51)
[2016-12-20] MEDS: OXYCODONE-ACETAMINOPHEN 5-325 MG TABLET PO PRN (05:46)
[2016-12-20] MEDS: CIPROFLOXACIN 400 MG/D5W RTU 400 MG/200 ML RTUPB IV SCH (05:47)
--- NOTE | 2016-12-20 08:07 | PDOC DISCHARGE SUMMARY ---
General - Admit/Disc Date/PCP Admission Date/Primary Care Provider: 12/18/16 18:28 Discharge Date: 12/20/16 - Discharge Diagnosis (1) Abscess or cellulitis of wrist Is this a current diagnosis for this admission?: Yes - Additional Information Resuscitation Status: Full Code Discharge Diet: As Tolerated Discharge Activity: Activity As Tolerated Home Medications: Tramadol HCl 50 mg PO BID PRN #6 tablet 12/15/16 Ciprofloxacin HCl [Cipro 500 mg Tablet] 500 mg PO BID #20 tablet 12/19/16 Hydrocodone/Acetaminophen [Frederic 5-325 mg Tablet] 1 tab PO Q6 PRN #20 tablet 05/27 Sulfamethoxazole/Trimethoprim [Bactrim Ds Tablet] 1 tab PO BID #20 tablet History of Present Illness History of Present Illness: RIK WORRELL is a 21 year old female Presents emergency room for wound check of her right wrist. She states it developed redness and swelling a few days ago. She was seen at the emergency room on 12/15/16 and a bedside I&D was performed. She has been taking Septra twice a day. She feels as though the wound has improved since that time. She denies fever chills or sweats. Current pain 07/20. Denies illicit drug use, insect bite, trauma, HIV and hepatitis C. Hospital Course Hospital Course: She was started on IV antibiotics on admission. After approximately 16 hours of antibiotics her right wrist was reevaluated which demonstrated purulent drainage. Given the persistent of the patient's drainage swelling redness and failed bedside I&D in the emergency room the decision was made to proceed with operative intervention. On 12/19/16 patient underwent irrigation debridement superficial abscess. Tolerated procedure well. There is no evidence of deep abscess or tracking abscess proximally or distally. On postop day number there is no purulent drainage from the wound once the dressing was removed along with the drain. Small area of granulation tissue which was present at patient's admission. No pain with wrist range of motion denied fever or chills. Pain was controlled. Given the fact cultures were obtained previously and demonstrated Peptostreptococcus I did not feel patient required further hospital stay until cultures were final. Patient with family orthopedically and medically stable for discharge to home on 12/20/16 Physical Exam Vital Signs: Temp Pulse Resp BP Pulse Ox 98.2 F 62 16 104/60 100 12/20/16 04:00 12/20/16 04:00 12/20/16 04:00 12/20/16 04:00 12/20/16 04:00 Intake & Output 12/19/16 12/20/16 12/21/16 06:59 06:59 06:59 Intake Total 0 885 Output Total 130 Balance 0 755 General appearance: PRESENT: no acute distress, well-developed, well-nourished Head exam: PRESENT: atraumatic, normocephalic Eye exam: PRESENT: conjunctiva pink, EOMI, PERRLA. ABSENT: scleral icterus Ear exam: PRESENT: normal external ear exam Mouth exam: PRESENT: moist, tongue midline Neck exam: PRESENT: full ROM. ABSENT: carotid bruit, JVD, lymphadenopathy, thyromegaly Cardiovascular exam: PRESENT: RRR. ABSENT: diastolic murmur, rubs, systolic murmur Pulses: PRESENT: normal dorsalis pedis pul, +2 pedal pulses bilateral Vascular exam: PRESENT: normal capillary refill GI/Abdominal exam: PRESENT: normal bowel sounds, soft. ABSENT: distended, guarding, mass, organolmegaly, rebound, tenderness Rectal exam: PRESENT: deferred Musculoskeletal exam: PRESENT: other - Right wrist: Dressing removed. 1.5 x 1.5 m open wound without purulent drainage. Evidence of granulation tissue. No palpable fluctuance. No purulent drainage. No pain with wrist range of motion. No sensory deficits. Patient able to make full composite fist. No tracking erythema. No lymphadenopathy. Neurological exam: PRESENT: alert, awake, oriented to person, oriented to place , oriented to time, oriented to situation, CN II-XII grossly intact. ABSENT: motor sensory deficit Psychiatric exam: PRESENT: appropriate affect, normal mood. ABSENT: homicidal ideation, suicidal ideation Skin exam: PRESENT: dry, intact, warm. ABSENT: cyanosis, rash Results Laboratory Results: 12/19/16 06:11 Impressions: Wrist X-Ray 12/18/16 15:44 IMPRESSION: Decreased, albeit persistent, soft tissue swelling overlying the distal ulnar metaphysis. No interval osseous abnormality. Plan Discharge Plan: Patient has seen improvement after formal irrigation and debridement in the operative room suite. Previous cultures demonstrated Prevotella and Peptostreptococcus species thus I will send the patient out on and . If patient's new intraoperative cultures demonstrate alternative bacteria will contact the patient for change in her prescription. Patient will follow up with me in 1 week. Will begin wet-to-dry dressing changes daily. If patient has increasing pain, swelling, redness, fever, chills or other concerns they will contact my office for earlier appointment or presented to the emergency room.
[2016-12-20 10:44] VITALS: BP 104/60
== END 2016-12-20 11:25 | disposition home or self-care (01) ==
LOC: ER 14:44 → EH 18:28 → UNDOADMOB 18:45 → EH 18:45 → 2N 21:55
PROVIDERS: ADMIT Orthopaedic Surgery; ATTEND Orthopaedic Surgery
PROC: 0JBD0ZZ Excision of Right Upper Arm Subcutaneous Tissue and Fascia, Open Approach (ICD-10-PCS; principal; 2016-12-19 11:30)
DX: L02.413 Cutaneous abscess of right upper limb (principal); B95.4 Other streptococcus as the cause of diseases classified elsewhere; B96.89 Other specified bacterial agents as the cause of diseases classified elsewhere; F17.210 Nicotine dependence, cigarettes, uncomplicated
CPT/HCPCS: 36415 ×2; 87040; 87070; 87205; 84703; 85025 ×2; 85652; 81025; 87075; 86140; 87077; 80053; 81001; 87186; 80307; 73110; 11043; G0378 ×4; J2250; J1100; J3010; J3490 ×3; J2270; J2405; J7120; J2704; J3370; J0744 ×3; 01810; 96365; 96367; 99284